=== PATIENT | female | born 1980 | race Caucasian/White ===

== ENCOUNTER 2018-10-26 11:57 | Day surgery (SDC) | payer OTHER ==
[2018-10-23 18:09] VITALS: Ht 144.8 cm; Wt 65.6 kg
[2018-10-26] VITALS (10 sets, daily range): BP systolic 121–149; BP diastolic 63–86; PULSE 68–96; RESP 14–19
[~2018-10-26] VITALS: Ht 144.8 cm; Wt 65.6 kg
[~2018-10-26 11:57] MED LIST: CHLO473M4 MM; CHOL4POW3 PO; FAMO20TA18 PO; FLO1 PO; FLUC100T39 PO; GABA-528 PO; LEVE500S8 PO; MERO1PIG2 IV; MIDO10TA PO; MINE3.5O31 BOTH EYES; NORT25CA PO; NYSTATIN SUSP; PRED20TA PO
--- NOTE | 2018-10-26 12:18 | PREAC ---
Date/Time of Note Date/Time of Note DATE: 10/26/18 TIME: 12:15 Anesthesia Eval and Record Evaluation Time Pre-Procedure Interview DATE: 10/26/18 TIME: 12:15 Age 38 Sex female NPO: 8 hrs Preoperative diagnosis Dysphagia Planned procedure EGD and PEG placement Past Medical History Past Medical History: Includes Pulm: Other (Tracheostomy in place, Respiratory Failure) Neuro: Other (Transverse Myelitis) GI: Other (Dysphagia) Surgery & Anesthesia Issues No known issue Meds Anticoagulation: No Beta Fernie within 24 hr: No Reason Beta Fernie not given: Pt. not on B-Fernie Reported Medications Prednisone* (Prednisone*) 20 Mg Tab, 20 MG PO DAILY, TAB 10/26/18 [Nystatin Susp] No Conflict Check 10/26/18 Nortriptyline Hcl* (Nortriptyline Hcl*) 25 Mg Capsule, 25 MG PO HS, CAP 10/26/18 Midodrine* (Midodrine*) 10 Mg Tablet, 10 MG PO TID, TAB 10/26/18 Meropenem-0.9% Sodium Chloride (Meropenem-0.9% NaCl 1 Gram/50) 1 Gm/50 Ml Piggyback, 1 GM IV 10/26/18 Levetiracetam* (Keppra*) 500 Mg/5 Ml Solution, 500 MG PO BID, BOTTLE 10/26/18 Gabapentin* (Gabapentin*) 800 Mg Tablet, 1200 MG PO TID, #90 TAB 10/26/18 Fludrocortisone* (Florinef*) 0.1 Mg Tab, 0.2 MG PO DAILY, TAB 10/26/18 Fluconazole* (Fluconazole*) 100 Mg Tablet, 100 MG PO DAILY, TAB 10/26/18 Famotidine* (Famotidine*) 20 Mg Tablet, 20 MG PO DAILY, #30 TAB 10/26/18 Cholestyramine (with Sugar) (Questran Packet) 4 Gm Powd.pack, 4 GM PO 10/26/18 Chlorhexidine Gluconate (Peridex) 473 Ml Mouthwash, 473 ML MM, BOTTLE 10/26/18 Artificial Tears* (Akwa Oint*) 3.5 Gm Oint, 1 APPLIC BOTH EYES HS, #1 TUB 10/26/18 Meds reviewed: Yes Allergies Coded Allergies: No Known Allergy (Unverified , 10/07/18) Allergies Reviewed: Yes Labs/Studies Labs Reviewed: Reviewed by anesthesiologist test: N/A Studies: ECG (n/a), CXR (n/a) Pre-procedure Exam Airway: Adequate mouth opening, Adequate thyromental dist Mallampati: Mallampati II Teeth: Normal Lung: Normal Heart: Normal ASA Physical Status ASA physical status: 3 Emergency: None Planned Anesthetic General/MAC: MAC Planned Pain Management Parenteral pain med Pre-operative Attestations Prior to commencing anesthesia and surgery, the patient was re-evaluated, there was verification of: *The patient's identity *The results of appropriate recent lab work and preoperative vital signs *The above evaluation not changing prior to induction *Anesthetic plan, risk benefits, alternative and complications discussed with patient/family; questions answered; patient/family understands, accepts and wish es to proceed. NEO CALHOUN MD Oct 26, 2018 12:18
[2018-10-26] MEDS ORDERED: CEFAZOLIN 1 GM/50 ML (PMX) 50 ML IVPB ONE (12:19)
[2018-10-26] MEDS ORDERED: ONDANSETRON 4 MG INJ IV PRN (12:30)
[2018-10-26] MEDS ORDERED: HYDROmorphONE 1 MG/5 ML IV SYRINGE IV PRN ×2 (12:30)
[2018-10-26] MEDS ORDERED: METOCLOPRAMIDE 10 MG INJ IV PRN (12:30)
[2018-10-26] MEDS ORDERED: FENTAnyl 50 MCG/ML VIAL IV PRN ×2 (12:30)
[2018-10-26] MEDS ORDERED: hydrALAzine 20 MG INJ IV PRN (12:30)
[2018-10-26] MEDS ORDERED: LABETALOL HCL 20MG INJ IV PRN (12:30)
[2018-10-26] MEDS ORDERED: EPHEDrine 25 MG/5 ML SYG IV PRN (12:30)
[2018-10-26] MEDS ORDERED: ALBUTEROL 0.083% (NEB) 2.5 MG/3 ML AMP HHN PRN (12:30)
--- NOTE | 2018-10-26 13:07 | PAC ---
Date/Time of Note Date/Time of Note DATE: 10/26/18 TIME: 12:49 Post-Anesthesia Notes Post-Anesthesia Note Last documented vital signs T: 98.0 Activity: WNL Respiratory function: WNL Cardiovascular function: WNL Mental status: Baseline Pain reasonably controlled: Yes Hydration appropriate: Yes Nausea/Vomiting absent: Yes NOE CALHOUN MD Oct 26, 2018 12:59
[2018-10-26] MEDS ORDERED: PROPOFOL 20 ML ONE (13:27)
== END 2018-10-26 13:52 | disposition other institution (70) ==
LOC: GIL 11:57
PROVIDERS: ATTEND Internal Medicine Gastroenterology
DX: R13.14 Dysphagia, pharyngoesophageal phase (principal); Z93.0 Tracheostomy status; G82.50 Quadriplegia, unspecified
CPT/HCPCS: 43246; J0690